=== PATIENT | female | born 1970 | race Caucasian/White ===

== ENCOUNTER 2022-11-24 09:17 | Emergency (ER) | payer OTHER, SELFPAY ==
[2022-11-24] VITALS (14 sets, daily range): BP systolic 123–133; BP diastolic 76–95; PULSE 63–74; RESP 16–20; TEMP 36.1–36.6; O2SAT 98–100; BMI 26.6
--- NOTE | 2022-11-24 09:43 | ED_ITS ---
HPI - Allergic Reaction General Date Seen: 11/24/22 Chief complaint: Allergic Reaction Stated complaint: Short of breath Time Seen by Provider: 11/24/22 09:29 History of Present Illness HPI narrative: This is a pleasant 51-year-old female accompanied to the ER today by her family with concerns for an allergic reaction. She took 3 new supplements this morning. Shortly after taking the supplements she developed allergic reaction symptoms. She broke out and itchy burning hives, she also had some tightness in her chest and in her throat. She came immediately here to the ER. Now that she is here she says all of her breathing trouble and tightness in her throat have resolved. She still has the residual hives. They are stable and not really worsening. No swelling in her face, lips, tongue. Voice is normal. No nausea or vomiting. No abdominal pain. No dizziness or lightheadedness. She has no history of other allergic reactions. No history of asthma. No history of cardiovascular disease or stents. Related Data Home Medications Medication Instructions Recorded Confirmed adrenal support plus 11/24/22 cyanocobalamin (vitamin B-12) 1,000 mcg subcut Q4W 11/24/22 11/24/22 1,000 mcg/mL injection solution dopa factors 11/24/22 vit d3/k2 11/24/22 Previous Rx's Medication Instructions Recorded clobetasol 0.05 % topical ointment 1 applic topical .COMPLEX #15 grams 05/11/22 Allergies Allergy/AdvReac Type Severity Reaction Status Date / Time No Known Drug Allergies Allergy Verified 11/24/22 09:27 [facility] Social History Smoking Status: Never smoker Do you use any of these nicotine containing products: None Second hand tobacco smoke exposure: No How often do you have a drink containing alcohol: never AUDIT-C Alcohol total score: 0 Non-prescribed substance use: marijuana (any form) service: No Exam Narrative: Exam Narrative: Constitutional: Appears well-developed and well-nourished. Alert. Conversant. Non toxic. HENT: Head: Atraumatic. Nose: Nose normal. Mouth/Throat: Oral mucosa is clear and moist. no trismus. Pharynx normal. Tonsils symmetric. No tonsillar enlargement, erythema, or exudate. Phonation normal. Airway widely patent. No trismus. No tongue swelling, lip swelling. No evidence for swelling in her posterior oropharynx. Eyes: Conjunctivae normal. EOM normal. Pupils equal, round, and reactive to light. No scleral icterus. Neck: Normal range of motion. Neck supple. No tracheal deviation present. Cardiovascular: Normal rate, regular rhythm. No gallop. No friction rub. No murmur heard. Symmetric radial artery pulses Pulmonary/Chest: Effort normal. No stridor. No respiratory distress. No wheezes. No rales. No rhonchi . No tenderness. Abdominal: Soft. Bowel sounds normal. No distension. No mass. No tenderness. No rebound. No guarding. Musculoskeletal: RUE: Normal range of motion. No tenderness. No deformity LUE: Normal range of motion. No tenderness. No deformity RLE: Normal range of motion. No edema. No tenderness. No deformity LLE: Normal range of motion. No edema. No tenderness. No deformity Neurological: Alert and oriented to person, place, and time. Normal strength. CN II-VII intact. No sensory deficit. GCS eye subscore is 4. GCS verbal subscore is 5. GCS motor subscore is 6. Normal coordination Skin: Hives present on the cheeks, neck, upper extremities, upper chest, back. Skin is otherwise pink, warm and dry. No rash noted. No pallor. Normal capillary refill. Psychiatric: Normal mood. Normal affect. Const: Vital Signs, click to edit/add: Vital Signs - 24 hr 11/24/22 09:28 11/24/22 09:34 11/24/22 09:35 Temperature 97.0 F L Pulse Rate 70 74 Pulse Rate [Pulse Oximeter] 68 Respiratory Rate 16 16 Blood Pressure 133/93 H Blood Pressure [Ri ght Upper Arm] 130/95 H Pulse Oximetry 100 99 [facility] 11/24/22 09:36 11/24/22 09:45 11/24/22 10:00 Temperature Pulse Rate 74 71 72 Pulse Rate [Pulse Oximeter] Respiratory Rate Blood Pressure Blood Pressure [Ri ght Upper Arm] Pulse Oximetry 98 98 99 Oxygen Delivery Me thod 11/24/22 10:05 11/24/22 10:06 11/24/22 10:15 Temperature 97.4 F L Pulse Rate 73 71 64 Pulse Rate [Pulse Oximeter] Respiratory Rate 16 16 Blood Pressure 123/76 Blood Pressure [Ri ght Upper Arm] Pulse Oximetry 98 100 99 Oxygen Delivery Me thod 11/24/22 10:30 11/24/22 10:34 11/24/22 10:45 Temperature Pulse Rate 67 66 66 Pulse Rate [Pulse Oximeter] Respiratory Rate Blood Pressure Blood Pressure [Ri ght Upper Arm] Pulse Oximetry 100 99 100 Oxygen Delivery Me thod 11/24/22 10:51 11/24/22 11:21 Temperature 97.8 F Pulse Rate Pulse Rate [Pulse Oximeter] 64 63 Respiratory Rate 20 Blood Pressure Blood Pressure [Ri ght Upper Arm] 123/76 128/83 Pulse Oximetry 100 Oxygen Delivery Me thod Room Air Room Air Course Course ED Course: He patient politely declines my initial ordered medications. Will observe. Reevaluation(s) Reevaluation #1: Has done well. Hives have resolved without treatment. at her bedside. They were comfortable discharging to home. Vital Signs Vital signs: Initial Vital Signs Temperature 97.0 F L 11/24/22 09:28 Temperature Source Temporal Artery Scan 11/24/22 09:28 Pulse Rate 68 11/24/22 09:28 Pulse Rhythm Regular 11/24/22 09:28 Pulse Strength 3+ Normal 11/24/22 09:28 Respiratory Rate 16 11/24/22 09:28 Blood Pressure 130/95 H 11/24/22 09:28 Blood Pressure Mean 106 H 11/24/22 09:28 Blood Pressure Position Sitting 11/24/22 09:28 Pulse Oximetry 100 11/24/22 09:28 Oxygen Delivery Method Room Air 11/24/22 09:28 Vital Signs Temperature 97.0 F L 11/24/22 09:28 Pulse Rate 68 11/24/22 09:28 Respiratory Rate 16 11/24/22 09:28 Blood Pressure 130/95 H 11/24/22 09:28 Pulse Oximetry 100 11/24/22 09:28 Oxygen Delivery Method Room Air 11/24/22 09:28 Temperature 97.8 F 11/24/22 11:21 Pulse Rate 63 11/24/22 11:21 Respiratory Rate 20 11/24/22 11:21 Blood Pressure 128/83 11/24/22 11:21 Pulse Oximetry 100 11/24/22 11:21 Oxygen Delivery Method Room Air 11/24/22 11:21 MDM - Allergic Reaction MDM Narrative Medical decision making narrative: This patient presents for evaluation of hives. Signs and symptoms are consistent with allergic reaction. No airway involvement, bronchospasm, GI symptoms, hypotension, or other sign of anaphylaxis. I initially ordered female with antihistamines and corticosteroids but patient declined. We observed the patient here in the ER.. Symptoms improved after observation. Return of anaphylactic symptoms were discussed with patient and they were instructed to inject epi-pen and call 911 should these symptoms occur. Given the rapidity of resolution, lack of serious systemic symptoms, lack of respiratory difficulty and no oral or pharyngeal swelling, would not admit at this time for anaphylaxis. There is no signs of anaphylactic shock. Discharge Plan Discharge Clinical Impression: Allergic reaction Patient Disposition: Home, Self-Care Condition: Stable Instructions: Allergy Testing (ED) Additional Instructions: As we discussed, please come back to the ER right away if you have any concerns especially trouble breathing, chest pain, swelling in your tongue, mouth, or throat, hives, or if you have any problems. Prescriptions: No Action cyanocobalamin (vitamin B-12) 1,000 mcg/mL solution 1,000 mcg subcut Q4W vit d3/k2 adrenal support plus dopa factors clobetasol 0.05 % ointment 1 applic topical .COMPLEX Qty: 15 2RF Rx Instructions: 1 applic topically 3 times a week; Pt should follow up at annual visit in August 2022. Follow Up/Referrals: Kamla Perry PA-C [Primary Care Provider] - Stand Alone Forms: Design Clinicalsth Info Instructions
[2022-11-24] MEDS: predniSONE 20 MG TABLET 60 MG PO (09:52)
[2022-11-24] MEDS: diphenhydrAMINE 25 MG CAPSULE PO (09:53)
--- NOTE | 2022-11-24 09:55 | ED.NURSE ---
Initially, patient refused to take Benadryl and prednisone. Stated she felt her symptoms were improving and didn't see the need for the medications. MD was notified of this and stated he recommended pt to have them but if she refuses then we can just monitor her respiratory status for an hour. Patient was notified and decided she should take the medications. Swallowed them with water without difficultly. Offered food and juice with pills but pt declined.
== END 2022-11-24 11:22 | disposition home or self-care (01) ==
PROVIDERS: Emergency Provider Emergency Medicine; PCP Physician Assistant Medical
DX: L50.9 Urticaria, unspecified (principal); T50.905A Adverse effect of unspecified drugs, medicaments and biological substances, initial encounter
CPT/HCPCS: 99283; A9270; J7512

== ENCOUNTER 2024-09-24 20:21 | Emergency (ER) | payer OTHER, SELFPAY ==
--- OUTSIDE RECORDS SUMMARY | 2024-09-24 20:22 | XMS_ITS | Clinical Summary ---
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 Medications acetaminophen (TYLENOL) 325 mg tablet Take 650 mg by mouth every 4 hours if needed for Pain. Max acetaminophen dose: 4000mg in 24 hrs. Active Syringe with Needle, Disp, (B-D 3cc Luer-Courtney Syr 25Gx5/8) 3 mL 25 x 5/8Indication s:Vitamin B12 deficiency USE TO INJECT B12 INJECTIONS EVERY 4 WEEKS. 4 Each 3 4 Active cyanocobalamin (VITAMIN B12) 1,000 mcg/mL injectionIndic ations:Vitamin B12 deficiency INJECT 1ML (DEEP) SUBCUTANEOUSLY EVERY 4 WEEKS. 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 Vitamin B12 deficiency 01/25/2011 Urinary retention 11/19/2010 Bariatric surgery status: Lap RNY gastric bypass 11/17/2010 Vitamin D deficiency 07/14/2010 Major depressive disorder, 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 Resolved Problems Problem Noted Date Diagnosed Date Resolved Date Morbid obesity 08/19/2010 02/17/2013 Body mass index 40.0-44.9, adult 08/19/2010 02/17/2013 Encounters Date Type Department Care Team Description 08/28/2024 7:50 AM CDT Office Visit [facility] [address] [place] [address] Kamla Perry PA Hip Pain/problem (R hip pain X 3 months - no known injury/) 08/28/2024 Travel 08/25/2024 Travel 08/17/2024 7:25 AM CDT Office Visit [facility] [address] [facility] [place] [address] Munir Linares MD URI (Sore Throat, face hurts, Post nasal drainage./DOO 08/08/2024) 08/17/2024 Orders Only [facility] [address] [place] [address] Munir Linares MD Lab (ORDER REPLACED) 08/17/2024 Travel 07/11/2024 Orders Only [facility] [address] [place] [address] Kamla Perry PA 1 scan: (1-Ord) [facility] 07/10/2024 10:40 AM CDT - 07/10/2024 11:59 PM CDT Hospital Encounter Carlos Rodriguez MD 07/10/2024 Orders Only [facility] [address] [facility] [address] [place] [id number] Carlos Rodriguez MD <No scans attached> 07/10/2024 Surgery [facility] [address] [place] [address] Carlos Rodriguez MD colonoscopy, screning 07/04/2024 Telephone [facility] [address] [place] [address] Carlos Rodriguez MD Appointment Reminder (Colonoscopy on 07/10/2024 at [facility]) from Last 3 Months Immunizations Immunization Administration Dates Next Due COVID-19 vaccine (Speed Dating by [employer] Lace 30mcg/0.3mL) P F, MDV 09/05/2020,08/15/2020 Td (Age >=7 Years) 02/22/2018 Tdap 02/01/2007 Family History Medical History Relation Name Comments Hyperlipidemia Father Hypertension Father Lung cancer Father Thyroid Disease Maternal Aunt 1 Thyroid Disease Maternal Aunt 2 Thyroid Disease Maternal Aunt 3 Thyroid Disease Maternal Aunt 4 Thyroid Disease Maternal Aunt 5 Blood Disease Maternal Grandmother clot i n her neck Stroke Maternal Grandmother Arthritis Mother RA Cancer Mother lung Thyroid Disease Mother Hypertension Sister Psychiatric illness Sister Thyroid Disease Sister Anesthesia Problem No Family History Cancer-breast No Family History Cancer-ovarian No Family History Relation Name Status Comments Brother 1 Alive Brother 2 Alive Brother 3 Alive Brother 4 Alive Daughter Alive Father Maternal Aunt 1 Maternal Aunt 2 Maternal Aunt 3 Maternal Aunt 4 Maternal Aunt 5 Maternal Grandfather Maternal Grandmother Mother Alive Paternal Grandfather Paternal Grandmother Sister Alive Son Alive Social History Tobacco Use Types Packs/Day Years Used Date Smoking Tobacco: Never Smokeless Tobacco: Never Tobacco Cessation:Counseling Given: Yes Alcohol Use Standard Drinks/Week Comments No 0 (1 standard drink = 0.6 oz pur e alcohol) PHQ-2 Answer Date Recorded PHQ-2 TOTAL SCORE 3 06/09/2022 Social Connections Answer Date Recorded Do you often feel lonely or isolated from those around you? 0 08/17/2024 Financial Resource Strain Answer Date R ecorded Difficulty of Paying Living Expenses 3 08/17/2024 Difficulty of Paying Living Expenses Not on file 08/17/2024 Food Insecurity Answer Date Recorded Do you worry your food will run out before you are able to buy more? 1 08/17/2024 Transportation Needs Answer Date Record ed Does lack of transportation keep you from medica l appointments? 1 08/17/2024 Does lack of transportation keep you from work, meetings or getting things that you need? 1 08/17/2024 Housing Stability Answer Date Recorded What is your housing situation today? 1 08/17/2024 Utilities Answer Date Recorded Do you have trouble paying f or utilities (for example, heat, electricity, water, phone)? 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 on file Not on file Not on file Obstetrics History Para Term AB IAB SAB Ectopic Multiple Livin g Live Births 2 2 2 Date Outcome GA Total Labor Labor/2nd/3rd Weight Sex Type Anes PTL Erika A1 A5 Name Clin Para Para Last Filed Vital Signs Vital Sign Reading Time Taken Comments Blood Pressure 130/87 08/28/2024 7:57 AM CDT Pulse 67 08/28/2024 7:57 AM CDT Temperature 36.6 C (97.9 F) 08/17/2024 7:20 AM CDT Respiratory Rate 18 07/03/2020 11:06 AM CDT Oxygen Saturation 100% 08/28/2024 7:57 AM CDT Inhaled Oxygen Concentration - - Weight 77.6 kg (171 lb) 05/15/2024 9:11 AM CDT Height 172.5 cm (5' 7.91) 06/21/2020 11:10 AM C DT Body Mass Index 26.07 06/21/2020 11:10 AM CDT Plan of Treatment Health Maintenance Due Date Last Done Comments HIV for age 15-65 1985 Hepatitis C screening for ag e 18-79 1988 Hepatitis B series for 19+ ( 1 of 3 - 19+ 3-dose series) 1989 Pneumococcal series for age 50+ (1 of 1 - PCV) 2020 Zoster (shingles) series for age 50+ (1 of 2) 2020 BMI (ht and wt on same day) for age 18+ 06/21/2021 06/21/2020, 10/11/2019, 02/22/2018, Additional history exists Depression screening for age 12+ 06/10/2023 06/09/2022, 04/16/2020, 09/22/2017, Additional history exists COVID-19 vaccine series ( season) 2023 09/05/2020, 08/15/2020 Influenza Vaccine (#1) 2024 Mammogram for age 45-75 11/28/2024 11/29/19 24, 03/23/2022, 01/22/2021, Additional history exists Lipids for age 45-75 06/21/2025 06/21/2020, 05/01/2009, 05/01/2009, Additional history exists Tetanus booster 02/23/2028 02/22/2018, 02/01/2007 Colonoscopy through age 75 07/10/2034 07/10/2024 Medical Devices Implanted Type [employer] Professional Device Identifier Shelf Expiration Date Model / Serial / Lot [id number] Implanted:Qty: 1 on 11/17/2010 at [facility] Explanted:at [facility] (Quantity not on file) Stomach SenSage ATLITA 06/07/2011 [id number] / [id number] / Description:ALLODERM 2X12 Procedures Procedure Name Priority Date/Time Associated Diagnosis Comments THROAT RAPID STREP ONLY CLINIC Routine 08/17/2024 12:24 PM CDT Sore throat STREP A PCR Routine 08/17/2024 7:30 AM CDT Sore throat COLONOSCOPY SCREENING Routine 07/10/2024 12:00 AM CDT Screening for colon cancer XR MAMMO BILAT SCREENING Routine 11/29/2023 2:55 PM CDT Visit for screening mammogram LIPID PANEL W REFLEX MEASURED LDL Routine 06/21/2020 11:44 AM CDT Lipid screening SURGICAL PROCEDURE (TYPE PROCEDURE DESCRIPTION BELOW) Encounter for screening colonoscopy from Last 3 Months or Most Recently Relevant to Health Maintenance Results * THROAT RAPID STREP ONLY CLINIC (08/17/2024 12:24 PM CDT) POC, GROUP A STREP NOT DETECTED NOT DETECTED [facility] Comment: The [place] [employer] recommends that a throat culture be performed if a rapid group A streptococcus assay yields a negative result. [facility] recommends Streptococcus, Group A culture. Throat SPECIMEN FROM THROAT / Unknown 08/17/2024 12:24 PM CDT 08/17/2024 12:26 PM CDT Munir Linares MD MICROBIOLOGY Final Res ult Performing Organization Address City/[facility]/ZIP Co de Phone Number [facility] [address] [place] [address], [facility] [address] [place] [address] * STREP A PCR (08/17/2024 7:30 AM CDT) Pathologist [facility] GROUP A STREP Negative 08/17/2024 8:05 PM CDT [facility] Throat SPECIMEN FROM THROAT / Unknown Non-Blood / Unknown 08/17/2024 7:30 AM CDT 08/17/2024 7:45 AM CDT Munir Linares MD MICROBIOLOGY Final Res ult [facility] [address] [place] [address], * COLONOSCOPY SCREENING (07/10/2024 12:00 AM CDT) Kamla SANTOS GI PROCEDURE ORD Final Result * XR MAMMO BILAT SCREENING (11/29/2023 2:55 PM CDT) Anatomical Region Laterality Modality BREASTS, Breast Left, Breast Right Bilateral Mammography Impressions 12/01/2023 3:44 PM CDT There is no radiographic evidence for malignancy. Recommend annual mammograms. MAMMOGRAM ASSESSMENT: ACR 1 Negative PATIENTS: You will also receive a letter with your examination results in an easy to read format. If you have questions about your results, please contact your referring provider. Narrative 12/01/2023 3:44 PM CDT For Patients: As a result of the Century Cures Act, medical imaging exams and procedure reports are released immediately into your electronic medical record. You may view this report before your referring provider. If you have questions, please contact your health care provider. XR MAMMO BILAT SCREENING [[id number]] CLINICAL HISTORY: This is an asymptomatic 53 y.o. patient. INDICATION FOR EXAM: Mammogram Screening. TECHNIQUE: CC & MLO views were obtained. This study was evaluated with the assistance of Computer-Aided Detection. COMPARISON FILM: Yes [facility]22 [facility] FINDINGS: There are scattered areas of fibroglandular density. There are no dominant masses, suspicious micro calcifications or areas of architectural distortion. us Kamla SANTOS MAMMO Final R esult * LIPID PANEL W REFLEX MEASURED LDL (06/21/2020 11:44 AM CDT) CHOLESTEROL,TOTAL 174 100 - 199 mg/dL 06/21/2020 6:51 PM CDT [facility] TRIGLYCERIDES 50 <150 mg/dL 06/21/2020 6:51 PM CDT [facility] HDL CHOLESTEROL 72 >40 mg/dL 6:51 PM CDT [facility] NON-HDL CHOLESTEROL 102 <145 mg/dl 06/21/2020 6:51 PM CDT [facility] CHOL/HDL RATIO 2.42 <4.50 06/21/2020 6:51 PM CDT [facility] LDL CHOLESTEROL 92 <=130 mg/dL 06/21/2020 6:51 PM CDT [facility] PROVIDER ORDERED STATUS RANDOM 06/21/2020 6:51 PM CDT [facility] Blood BLOOD SPECIMEN / Unknown Venipuncture / Unknown 06/21/2020 11:44 AM CDT 06/21/2020 11:44 AM CDT us Kamla SANTOS CHEMISTRY Final R esult [facility] [address] [place] [address], [place] from Last 3 Months or Most Recently Relevant to Health Maintenance Insurance [facility] Advance Directives * Full Code (Latest Code Status on File) Date Activated Date Inactivated Comments 05/12/2015 11:46 AM 05/13/2015 1:40 PM * Full Code Date Activated Date Inactivated Comments 09/17/2014 4:26 AM 09/19/2014 5:40 PM * Full Code Date Activated Date Inactivated Comments 09/17/2014 4:15 AM 09/17/2014 4:26 AM * Full Code Date Activated Date Inactivated Comments 11/14/2010 1:18 PM 11/18/2010 5:21 PM Care Teams Truck Driving Instructor Relationship Specialty Start Date End Date Kamla Perry PA [address] [place] [address] PCP - General Family Practice 02/09/14
--- OUTSIDE RECORDS SUMMARY | 2024-09-24 20:23 | XMS_ITS | Data Portability ---
[facility] Address [address] [address] Care Team Providers Care Property Custodian Name Role Phone JORDONAmrit JASMINE Primary Care Provider Unavailable Referring Provider [phone] Assessment Encounter Date Assessment Date Assessment LastModified by Organization Details LastModified Time 05/10/2019 05/10/2019 Today I spent a considerable amount of time discussing the patients past medical and personal history, as well as performing a physical examination all of which is documented in it's entirety in the electronic health record. I reviewed the pathophysiology of the disorder, potential contributing and risk factors as well as treatment options to address their complaints. Today panoramic imaging was obtained. In this radiograph the mandibular condyles were partially visualized and appear slighlty flattened and irregular . There was no other suggestion of osseous or odontogenic abnormalities. I've not recommended advanced imaging at this time. From a treatment perspective I've recommended rehabilitative treatment approach. Treatment begins with home self management designed to rest the muscles of mastication and reduce inflammation in the temporomandibular joints. This includes heat and ice compresses, eating a soft food or pain-free diet, bilateral chewing identifying and decreasing daytime muscle tension and modification of their sleep position. Beyond self management I do believe that they would benefit from a mandibular intraoral appliance. In addition I've recommended rehabilitation with physical therapy. The goal of treatment is to restore function and reduce pain. I do believe that by following these treatment recommendations there is a good prognosis for reduction of symptoms. Today greater than 50% of the 60 minute visit was spent counseling and coordinating care. This may have included a review of the diagnosis, contributing factors, diagnostic imaging, home self-management strategies and the limitations and expectations. Cost of care and insurance coverage was reviewed and discussed with the patient. Not available 05/11/2019 16:05:58 08/11/2019 08/11/2019 Patient was seen today for follow-up and insertion of a mandibular stabilization intraoral appliance. Diagnosis and contributing factors were reviewed. Questions were answered. Self-management and home exercise techniques were reviewed. Today the intraoral appliance was fit to patient comfort. Specifically, adjustments were made to balance appliance occlusion. Instructions on proper use and care were discussed/reviewed both written and verbally. I suggested that (s)he uses the appliance as a retraining tool to aid in relaxing their jaw muscles - put it in 20-30 minutes before bed time, keeping their jaw in a relaxed balanced position, simultaneously applying a heat compress on the jaw. Potential side effects were reviewed. The patient was advised to discontinue oral appliance use should they experience untoward side effects or be unable to return for follow-up care. The patient was advised to return in 3-4 weeks to reassess their progress and continue their treatment plan as previously outlined. In addition to oral appliance insertion today we review home self-care strategies as previously discussed. We discussed additional treatment options including rehabilitative treatment with physical therapy. Evi will see how she responds to splint therapy before physical therapy. Today greater than 50% of the 15 minute visit was spent counseling and coordinating care. This may have included a review of the diagnosis, contributing factors, home self-management strategies and the limitations and expectations. Not available 08/11/2019 11:46:49 09/28/2019 09/28/2019 Today I reviewed the diagnosis, contributing factors and treatment options. I reviewed and reinforced continued use of self care and home exercises. I've encouraged daily home care use which may consist of heat and ice compresses, oral habit reduction and relaxation techniques. The intraoral appliance was adjusted to patient comfort and balanced. I recommended she see Paul, physical therapist, to address her chronic right masseter myofascial pain. I've suggested that the patient return for follow-up care in 3 months. Today greater than 50% of the 15 minute visit was spent counseling and coordinating care. This may have included a review of the diagnosis, contributing factors, home self-management strategies and the limitations and expectations. 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 Patient is moderate complexity with 1 personal factors / comorbidities affecting the plan of care, with evolving clinical presentation. Examination determines affected structures, participation restrictions and/or functional limitations. The patient will benefit from PT to decrease pain and increase function. Contributing factors include muscle guarding, weakness in the right and and leg, unilateral limitation in rotation. Her jaw dysfunction seems to be the end of the chain, as the opening increases by working an area far removed from the jaw. Treatment will include exercises to release muscle tension and increase strength and stability. Habit monitoring and repeated reminding techniques will be utilized to eliminate habitual clenching. 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 Lower quarter and upper quarter dysfunction to be addressed. csather Not available 10/05/2019 13:58:05 Plan of Treatment Reminders Order Date Submit Date Provider Last Modified By Organization Details Last Modified Time Details Appointments None recorded. Lab None recorded. Referral physical therapist referral 2019 [address] [facility], [facility] [address], [place], [address], 0 16:07:21 Procedures None recorded. Surgeries None recorded. Imaging None recorded. Medication Orders None recorded. Patient TargetsNo targets recorded. Patient Instructions Encounter Date Encounter Id Patient Instructions Last Modified By Organization Details Last Modified Time 05/10/2019 [id number] oral appliance preparation* Not available 05/11/2019 16:07:21 Self Care for TMD Not availabl e 05/11/2019 16:07:21 10/05/2019 [id number] Plan: Medicare requires a primary grade teacher or BUSINESS SUPPORT PROFESSIONAL to authorize our plan of care. If you agree with the plan as outlined above, please sign, date and fax back to [phone]. Thank you. Primary MD signature: Date: [email or web address] Not available 10/05/2019 12:09:49 Reason for Referral Physical Therapist Referral for Myofascial pain Referring Physician: Deedee Calabrese, Pain Management, Encounter Date: 05/10/2019 Results Created Date Observation Date Name Description Value Unit Range Abnormal Flag Note LastModifiedBy Organization Detail LastModifiedTime 05/11/1905/11/2019 oral appli ance prepa ratio n* Type of appliance mandib ular stabil izatio n applia nce Not Available [place] [address] [facility] [address], [place], [address], 05/11/2019 16:03:27 05/10/19 XR, ortho panto gram No observ ation record ed. [email or web address] Not Available 2019 14:27:47 Result Notes None recorded. Problems Name Problem SNOMED Code Status Onset Date Resolution Date Notes Provider Name and Address Organization Details Recorded Time Myofascial pain 002236595 Active 2019 masticato ry- right masseter Deedee barrera [facility] 0 14:02:04 Neck pain 38564304 Active 2019 VIKASH Monzon [facility] 0 16:01:26 Problem Notes None recorded. Procedures Surgical History Date Name Laterality Status Provider Name and Address Organization Details Recorded Time 10/05/19 11802 - PT Eval Moderate Complexity completed Paul Arteaga [facility] 10/05/2019 12:09:50 10/05/19 45335: Therapeutic Exercise completed Paul SUH [facility] 10/05/2019 12:09:50 10/05/19 20 28882: Manual Therapy completed Paul Arteaga [facility] 10/05/2019 13:52:53 08/11/19 20 Oral appliance completed Jeffery Rendonppard [facility] 08/11/2019 11:14:01 05/10/19 20 Orthopantogram completed Deedee Calabrese [facility] 05/10/2019 14:54:01 02/06/20 15 Urgent Care Physician Assistant Surgery completed Jeffery Rendonppard [facility] 05/10/2019 14:09:30 11/18/19 10 Gastric Bypass completed Jeffery Gary [facility] 05/10/2019 14:09:30 10/01/18 99 Caesarean Section completed Jeffery Gary [facility] 05/10/2019 14:09:30 Imaging Results None recorded. Procedure Notes None recorded. Medical Equipment None Reported. Allergies Allergen ID Allergen Name Allergen Category Reaction Reaction Severity Criticality Documentation Date Start Date Code Code System Note Provider Name and Address Organization Details Recorded Time 65693 Non-stero idal anti-infl ammatory agent (product) medicatio n Not available Not available Not available 05/10/2019 40837 005 SNOMED Jeffery Garynelly barrera [facility] 0 14:10:44 Medications Name Sig Start Date Stop Date Status Note LastModified by Organization Details LastModified Time cyclobenzaprine 10 mg tablet 05/04 completed Not Available Not Available Not Available BD Luer-Courtney Syringe 3 mL 25 x 5/8 active Not Available Not Available Not Available cyanocobalamin (vit B-12) 1,000 mcg/mL injection solution active Not Available Not Available Not Available Vitals Date Recorded Body height Body mass index (BMI) Body weight Heart rate Systolic And Diastolic Provider Name and Address Organization Details Last Updated DateTime 05/10/2019 172.72 cm 25.8 kg/m2 32965.7 g 60 /min 150/98 mm[Hg] Jeffery Gary [facility] 05/10/2019 14:10:15 Date Recorded Body height Body temperature Heart rate Systolic And Diastolic Provider Name and Address Organization Details Last Updated DateTime 08/11/2019 172.72 cm 97.7 [degF] 63 /min 129/85 mm[Hg] Jeffery Gary [facility] 08/11/2019 11:09:43 Date Recorded Body height Body mass index (BMI) Body weight Body temperature Heart rate Systolic And Diastolic Provider Name and Address Organization Details Last Updated DateTime 0 172.72 cm 25.8 kg/m2 76004.7 g 97.2 [degF] 61 /min 129/83 mm[Hg] Lee Solanoken [facility] 0 13:37:35 Social History Question Answer Notes LastModified by Organizat ion Details LastModified Time Tobacco Smoking Status Never Smoker Jeffery Rendonppard holly [facility] 05/10/2019 14:09:25 Auto Related Injury? No Information not available 05/10/2019 What Is Your Level Of Caffeine Consumption? Occasional Information not available 05/10/2019 Currently No Information not available 05/10/2019 What Type Of Diet Are You Following? REGULAR Information not available 05/10/2019 Do You Reside In Or Have You Traveled To An Area Where Ebola Virus Transmission Is Active? No Information not available 05/10/2019 Education 2 Year College Informatio n not available 05/10/2019 Marital Status Informatio n not available 05/10/2019 What Number Best Describes Your Pain On Average In The Past Week? (0=no Pain, 10=pain As Bad As You Can Imagine) 2 Information not available 05/10/2019 What Number Best Describes How, During The Past Week, Pain Has Interfered With Your Enjoyment Of Life? (0=does Not Interfere, 10= Completely Interferes) 0 Information not available 05/10/2019 What Number Best Describes How, During The Past Week, Pain Has Interfered With Your General Activity? (0=does Not Interfere, 10=completely Interferes) 0 Information not available 05/10/2019 How Many Children Do You Have? 2 Information not available 05/10/2019 General Stress Level Low [email or web address] Information not available 09/28/2019 Work Related Injury? No Information not available 05/10/2019 Sex: Unknown Functional Status Question Answer Note LastModified by Organizat ion Details LastModified Time Do you use any illicit or recreational drugs? No Information not available 05/10/2019 What is your level of alcohol consumption? None Information not available 05/10/2019 Are you currently employed? 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 Heavy Information not available 05/10/2019 Mental Status None recorded. Family History Relationship Description Onset Age of this Age Resolved Age Notes LastModified by Organization Details LastModified Time Maternal Grandmother Heart disease 54 Not available 05/09 14:09:04 Mother Rheumatoid arthritis 60 Not available 05/09 14:09:04 Medical History Condition Response Coronary Artery Disease N Gout N Other N MRSA N Head Trauma/Injury N Lung Disease N Glaucoma N Depression N COPD N Pneumonia N Pacemaker N Obstructive Sleep Apnea N Anxiety Disorder N Muscle, Joint, or Bone Problems N Autoimmune disease N Vision or Eye Problems N Arthritis N Acid Reflux (GERD) N Cancer N Stroke N Back Injury N High Cholesterol N Liver Disease N Organ Transplant N Rheumatoid Arthritis N Headaches N Fibromyalgia N Kidney Disease N Allergies/Hayfever N Post traumatic stress disorder (PTSD) N Parkinson's Disease N Migraines N Brain Tumors N Anemia N Multiple Sclerosis N Heart Attack ([place]) N Stomach Ulcers N Diabetes N Bleeding Disorder N Seizures/Epilepsy N Tuberculosis N AIDS/HIV N Dementia N Asthma N Substance Abuse N Vertigo N Sleep Disorder N Hepatitis N Neuropathy N Heart Disease N Pulmonary Embolism Y Hypertension N Osteoporosis N Gynecological HistoryNo gynecological history recorded. 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 Neck pain 53475826 M54.2 [id number] DEEDEE CALABRESE DDS [place] [address] [place] [address] 09/28/2019 13:31:45 09/28/2019 14:04:11 Neck pain 93846975 M54.2 Myofascial pain 57261118 9 M79.11 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- right masseter [id number] PAUL ARTEAGA, PT [place] [address] [place] [address] 10/05/2019 11:59:43 10/05/2019 13:13:46 Myofascial pain 181669740 M79.11 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- right masseter Neck pain 13402746 M54.2 Health Concerns Section Related Observation LastModified by Organization Detai ls LastModified Time None Recorded Concern Status LastModified by Organization Details LastModified Time None Recorded Advance Directives Directive None Recorded Payers Insurance Date Sequence Insurance Name Policy Number Policy Oh Covered Member ID Oh Member ID Guarantor Name 10/29/2019 1 [facility] Doug Rodríguez [id number] Doug Rodríguez Notes Date Note Type Note Provider Name and Address Organization Details Recorded Time 0 text/html Jaw painReported bypatient.Onset:started 1.5 year(s) ago Location:right; masseter Quality:aching; sore Severity:pain level 0/10 Duration and frequencyintermittent ; only when she opens Context:clenching; dental work Aggravating/contribution factors:clenching the teeth; yawning; wide mouth opening Associated Symptoms:no jaw clicking; no jaw popping Prior Treatment:nightguard; water filled appliance from [facility] Prior opiniondentist Patient presents today for evaluation of a possible temporomandibular disorder. These symptoms are chronic and began with no clear triggering events. Previous consultation include evaluation with her dentist. Symptoms are right sided only and aggravated by jaw use and function. The patient is aware of teeth clenching and grinding. Evi reports that 1.5 years ago she had some dental work done, and since then, she has had pain in her right jaw. She had no prior history with TMD up until that point. Her pain is present only when she opens her mouth. Her dentist has tried balancing her occlusion, but the pain did not decrease. She had a manager night fabricated by her dentist as well, but it did not seem to affect her pain, either. The appliance had water-filled pockets on the posterior occlusal. Evi believes that she may be clenching her teeth. VIKASH [facility] 05/11/2019 16:07:25 0 text/html Jaw painReported bypatient.Onset:started 1.5 year(s) ago Location:right; masseter Quality:aching; sore Severity:pain level 0/10 Duration and frequencyintermittent ; only when she opens Context:clenching; dental work Aggravating/contribution factors:clenching the teeth; yawning; wide mouth opening Associated Symptoms:no jaw clicking; no jaw popping Prior Treatment:nightguard; water filled appliance from [facility] Prior opiniondentist Patient presents today for insertion of a mandibular stabilization oral appliance. They note no changes in symptoms which along with prior data was reviewed, updated and documented in the patient history of present illness. (S)he describes compliance with home self care as previously recommended. Evi reports that her symptoms have not changed. We were unable to begin treatment after her initial appointment due to the Covid 10 quarantine. VIKASH Monzon [facility] 08/11/2019 11:47:40 0 text/html Jaw painReported bypatient.Onset:started 1.5 year(s) ago Location:right; masseter Quality:aching; sore Severity:pain level 0/10 Duration and frequencyintermittent ; only when she opens Context:clenching; dental work Aggravating/contribution factors:clenching the teeth; yawning; wide mouth opening Associated Symptoms:no jaw clicking; no jaw popping Prior Treatment:nightguard; water filled appliance from [facility] Prior opiniondentist Patient presents today for follow-up. They report jaw symptoms which are unchanged since the previous visit. Symptoms and pertinent information along with prior data was reviewed, updated and documented in the patient history of present illness. Patient rates the pain intensity as 4 on a scale of 0 to 10. Patient is engaged in active treatment at this time.Evi reports that she has been wearing her splint nightly but that she wakes up with pain in her right jaw which lasts through early afternoon. She has not been using heat or doing any exercises. Deedee barrera [facility] 09/28/2019 14:06:49 0 text/html Jaw painReported bypatient.Onset:started 1.5 year(s) ago Location:right; masseter Quality:aching; sore Severity:pain level 0/10 Duration and frequencyintermittent ; only when she opens Context:clenching; dental work Aggravating/contribution factors:clenching the teeth; yawning; wide mouth opening Associated Symptoms:no jaw clicking; no jaw popping Prior Treatment:nightguard; water filled appliance from [facility] Prior opiniondentist Patient presents today for follow-up. They report jaw symptoms which are unchanged since the previous visit. Symptoms and pertinent information along with prior data was reviewed, updated and documented in the patient history of present illness. Patient rates the pain intensity as 4 on a scale of 0 to 10. Patient is engaged in active treatment at this time.Evi reports that she has been wearing her splint nightly but that she wakes up with pain in her right jaw which lasts through early afternoon. She has not been using heat or doing any exercises. Personal factors and/or comorbidities affecting the plan of care include . Functional limitations and participation restrictions include . Patient presents today for PT evaluation regarding . Symptoms began with . Contributing factors: *Clenching *Bruxism *Leaning on chin *Phone cradle *Biting objects/fingernails *[place]/chewing lips/cheeks *Tongue thrusting *Jaw thrusting *Unilateral chewing * stress level * anxiety level *Nicotine *Caffeine per day *Sleep position *Work ergonomics Evi reports that she has been wearing her splint nightly but that she wakes up with pain in her right jaw which lasts through early afternoon. She has not been using heat or doing any exercises. Dental appointment with mouth opened caused original problems. Put on a cap. Works at home, no issues.Stress lowDoesn;t clench. No gum chewing. No problem eating. VIKASH [place] [facility] 10/05/2019 13:59:32 OBGyn Episode No OBEpisode recorded.
[2024-09-24 20:25] VITALS: BP 165/95; PULSE 86; RESP 18; TEMP 36.6; O2SAT 97; BMI 26.8
--- NOTE | 2024-09-24 21:05 | CRLHL7_ITS ---
For Patients: As a result of the Century Cures Act, medical imaging exams and procedure reports are released immediately into your electronic medical record. You may view this report before your referring provider. If you have questions, please contact your health care provider. INDICATION: Chest pain. TECHNIQUE: Chest 2 views. COMPARISON: CT chest PE 09/13/2014. FINDINGS: Cardiovascular and mediastinum: Heart size and vasculature are normal in caliber and appearance. Lungs and pleural spaces: Lungs are clear. No sign of infiltrate or mass. No sign of pleural effusion. No pneumothorax. Bones and soft tissues: No significant findings. IMPRESSION: No acute cardiopulmonary abnormality. Dictated by Cortes Monteiro MD @ 09/24/2024 9:22:23 PM (Electronically Signed)
--- NOTE | 2024-09-24 21:08 | ED_ITS ---
HPI - General Adult General Date Seen: 09/24/24 Chief complaint: Insect Bite Stated complaint: stung by bee, chest pressure Time Seen by Provider: 09/24/24 20:36 Source: patient Mode of arrival: ambulatory Limitations: no limitations History of Present Illness HPI narrative: Patient is a 53-year-old female presenting to emergency department for right ear swelling and pain. She states yesterday afternoon she was stung by bee in her right ear. Since then she has been noticing increased swelling to the right ear with some pain and swelling around the ear. Rates the pain as a 7/10 into Tylenol today for pain. Is not aware of any allergies to bee stings. Has not taking any Benadryl yet. Denies any other rashes. Denies fevers, chills, hearing issues. She then noticed some chest pain today that started a few hours ago that was not going away. Describes as a pressure sensation. Does not feel short of breath. Does have a history of a PE. Denies having chest pain like this before. Denies weakness, numbness, abdominal pain, diarrhea, constipation. Has not noticed any leg pain or swelling. No other concerns noted at this time. Related Data Home Medications ?Medication ?Instructions ?Recorded ?Confirmed adrenal support plus 11/24/22 06/29/23 cyanocobalamin (vitamin B-12) 1,000 mcg subcut Q4W 09/24/24 1,000 mcg/mL injection solution dopa factors 11/24/22 06/29/23 vit d3/k2 11/24/22 06/29/23 estradiol 0.01% (0.1 mg/gram) 0.5 vaginal .Twice Weekl y 06/29/23 06/29/23 vaginal cream Previous Rx's ?Medication ?Instructions ?Recorded estradiol 0.01% (0.1 mg/gram) 0.5 g vaginal 2XW #42.5 grams 06/29/23 vaginal cream (Estrace) clobetasol 0.05 % topical ointment 1 applic topical .C OMPLEX #15 grams 11/29/23 Allergies Allergy/AdvReac Type Severity Reaction Status Date / Time NSAIDS (Non-Steroidal AdvReac Unknown Had Verified 09/24/24 20:35 Anti-Inflamma Gastric Bypass Review of Systems Status of ROS: Reports: 10 or more systems reviewed and unremarkable except as noted in History and below [facility] Medical History Cholecystitis without calculus (2015) ?K81.9 - Cholecystitis, unspecified (ICD-10) History of pulmonary embolus (PE) (02/08/14) ?Z86.711 - Personal history of pulmonary embolism (ICD-10) History of DVT (deep vein thrombosis) (09/13/14) ?Z86.718 - Personal history of other venous thrombosis and embolism (ICD-10) Surgical History History of 2 sections ?Z98.891 - History of uterine scar from previous surgery (ICD-10) History of endometrial ablation (04/06/14) ?Z98.890 - Other specified postprocedural states (ICD-10) History of Felicita-en-Y gastric bypass (2010) ?Z98.84 - Bariatric surgery status (ICD-10) History of hysterectomy (09/12/14) ?Z90.710 - Acquired absence of both cervix and uterus (ICD-10) Family History Mother Lung cancer Thyroid disease Rheumatoid arthritis Maternal Grandmother Stroke Bleeding disorder Father High cholesterol High blood pressure Sister High blood pressure Depression Stroke Aunt Stroke Social History Smoking Status: Never smoker Do you use any of these nicotine containing products: None Second hand tobacco smoke exposure: No How often do you have a drink containing alcohol: never AUDIT-C Alcohol total score: 0 Non-prescribed substance use: marijuana (any form) service: No Exam Narrative: Exam Narrative: Const: Well-nourished, Well-developed, in mild distress Eyes: PERRL, no conjunctival injection, and symmetrical lids HENT: Atraumatic external nose. Moist mucous membranes. Notable swelling noted to the right ear with diffuse erythema. Tenderness when pulling on the ear Neck: Symmetric, trachea midline, No thyromegaly. CVS: RRR, No murmurs or gallops. Peripheral pulses 2+ and equal in all extremities RESP: Unlabored respiratory effort. Clear to auscultation bilaterally. GI: Nontender/Nondistended, No rebound or guarding. MSK:Extremities w/o deformity, Normal Active ROM Skin: Warm, Dry. No rashes or lesions. Neuro: Normal Muscle tone, No focal neurological deficits. Psych: Awake, Alert, & Oriented x3. Appropriate mood and affect. Const: Vital Signs, click to edit/add: Vital Signs - 24 hr 09/24/24 20:25 Temperature 97.8 F Pulse Rate [Left P ulse Oximeter] 86 Respiratory Rate 18 Blood Pressure [Ri ght Upper Arm] 165/95 H Pulse Oximetry 97 Oxygen Delivery Me thod Room Air Course Vital Signs Vital signs: Initial Vital Signs Temperature 97.8 F 09/24/24 20:25 Temperature Source Temporal Artery Scan 09/24/24 20:25 Pulse Rate 86 09/24/24 20:25 Respiratory Rate 18 09/24/24 20:25 Blood Pressure 165/95 H 09/24/24 20:25 Blood Pressure Mean 118 H 09/24/24 20:25 Blood Pressure Position Sitting 09/24/24 20:25 Pulse Oximetry 97 09/24/24 20:25 Oxygen Delivery Method Room Air 09/24/24 20:25 Vital Signs Temperature 97.8 F 09/24/24 20:25 Pulse Rate 86 09/24/24 20:25 Respiratory Rate 18 09/24/24 20:25 Blood Pressure 165/95 H 09/24/24 20:25 Pulse Oximetry 97 09/24/24 20:25 Oxygen Delivery Method Room Air 09/24/24 20:25 Temperature 97.8 F 09/24/24 20:25 Pulse Rate 86 09/24/24 20:25 Respiratory Rate 18 09/24/24 20:25 Blood Pressure 165/95 H 09/24/24 20:25 Pulse Oximetry 97 09/24/24 20:25 Oxygen Delivery Method Room Air 09/24/24 20:25 Medications Administered Medications: Discontinued Medications Generic Name Dose Route Start Last Admin Trade Name Freq PRN Reason Stop Dose Admin Ciprofloxacin 500 mg 09/24/24 21:05 09/24/24 21:21 Ciprofloxacin 500 Mg Tablet PO 09/24/24 21:06 500 mg ONCE ONE Administration Diphenhydramine HCl 25 mg 09/24/24 21:05 09/24/24 21:21 Diphenhydramine 50 Mg/Ml Inj IVP 09/24/24 21:06 25 mg ONCE ONE Administration Famotidine 20 mg 09/24/24 21:05 09/24/24 21:22 Famotidine 20 Mg Tablet PO 09/24/24 21:06 20 mg ONCE ONE Administration Prednisone 40 mg 09/24/24 21:05 09/24/24 21:22 Prednisone 20 Mg Tablet PO 09/24/24 21:06 40 mg ONCE ONE Administration Medical Decision Making MDM Narrative Medical decision making narrative: Patient is a 53-year-old female presenting to emergency department for right ear pain and swelling along with chest pain. The right ear could be an infection from the bug bite but also could be allergic reaction. There is some very mild tenderness to her right mastoid region but this seems unlikely to be mastoiditis from this superficial infection. No signs of otitis media. Do not believe CT is necessary. Will treat her for both infection and allergic reaction. While she does have chest pain her vital signs are stable under is not appear to be any other rash in seems unlikely to be anaphylaxis. The differential diagnosis of chest pain is broad and includes common etiologies such as musculoskeletal strain, GERD, pneumonia, etc. More serious etiologies considered include PE, coronary artery disease, pneumothorax, aortic dissection, aortic aneurysm. She has history of PE so a D-dimer will be ordered. Will do chest x-ray to look for signs of pneumonia or pneumothorax. EKG and troponin ordered to look for cardiac abnormalities. She is otherwise stable aortic dissection/aortic aneurysm seem unlikely. Lab work returned showing no concerning abnormalities. Initial troponin within normal limits. Will repeat troponin as symptoms of chest pressure started about 2 hours prior to arrival. EKG shows no concerning abnormalities. Chest x-ray reviewed by myself the radiologist shows no concerning findings. D-dimer within normal limits. Patient is COVID positive. Repeat troponin within normal limits. She is feeling well at this time will be discharged. Will treat her for both an allergic reaction and perichondritis. Lab Data Labs: Lab Results 09/24/24 09/24/24 09/24/24 Range/Units 21:05 21:15 23:05 WBC 8.34 (4.50-11.00) K/uL RBC 4.53 (4.00-5.20) m/uL Hgb 14.0 (12.0-16.0) gm/dL Hct 41.7 (33.0-51.0) % MCV 92 (80-100) fL MCH 31 (26-34) pg MCHC 34 (32-36) gm/dL RDW Coeff of Lady 11.9 (11.5-15.5) % Plt Count 369 (140-440) K/uL Neut % (Auto) 61.9 (42.0-72.0) % Lymph % (Auto) 29.4 (20-44) % [place] % (Auto) 6.4 (0.0-11.0) % Eos % (Auto) 1.9 (0.0-7.0) % Baso % (Auto) 0.4 (0.0-3.0) % Neut # (Auto) 5.17 (1.7-7.0) K/uL Lymph # (Auto) 2.45 (0.90-2.90) K/uL [place] # (Auto) 0.50 (0.00-0.90) K/UL Eos # (Auto) 0.16 (0.00-0.50) K/uL Baso # (Auto) 0.03 (0.00-0.30) K/uL Abs Immat Gran (auto) 0.00 (0.00-0.30) K/uL Imm/Tot Granulo (auto) 0.0 % D-Dimer Quant (PE/DVT) < 0.27 (0.00-0.50) ug/ml Sodium 141 (135-149) mmol/L Potassium 3.7 (3.6-5.1) mmol/L Chloride 107 (96-114) mmol/L Carbon Dioxide 28 (20-32) mmol/L Anion Gap 6 L (7-15) mEq/L BUN 14 (7-30) mg/dL Creatinine 0.7 (0.5-1.5) mg/dL Estimated Creat Clear 93.76 Estimated GFR 103 ml/min Glucose 88 (60-115) mg/dL Calcium 9.3 (8.4-10.6) mg/dL Magnesium 2.1 (1.5-2.6) mg/dL SARS-CoV-2 (PCR) POSITIVE SARS-CoV-2 A (Negative) Influenza Type A (PCR) Negative PCR FLU A (Negative) Influenza Type B (PCR) Negative PCR FLU B (Negative) RSV (PCR) Negative PCR RSV (Negative) POC Troponin I 0.00 L 0.00 L (0.01-0.04) ng/ml Imaging Data Chest x-ray: Attestation: I have reviewed the pertinent imaging results. Radiologist's impression: No acute cardiopulmonary abnormality. Dictated by Cortes Monteiro MD @ 09/24/2024 9:22:23 PM ECG Data Attestation: I personally reviewed and interpreted this ECG as follows: Prior ECG tracings: not available for review Interpretation: Sinus bradycardia with a rate of 59 beats per minute, normal intervals, normal axis, no ST or T-wave abnormalities Discharge Plan Discharge Clinical Impression: COVID Bug bite of face with infection Qualifiers: Encounter type: initial encounter Qualified Code(s): S00.86XA - Insect bite (nonvenomous) of other part of head, initial encounter Patient Disposition: Home, Self-Care Condition: Stable Instructions: Insect Bite or Sting (ED), COVID-19 (Coronavirus Disease 2019) (ED) Additional Instructions: You have COVID. Recommendations is to quarantine for 5 days of onset of symptoms and 72 hours without a fever. Is hard to say if here here is allergic reaction or infection so the cell treated for both. Take Benadryl as needed for itchiness. Can also take Pepcid once a day. 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 Start taking medications on 09/25/2024 when you wake up Prescriptions: No Action estradiol 0.01 % (0.1 mg/gram) cream 0.5 vaginal .Twice Weekly estradiol [Estrace] 0.01 % (0.1 mg/gram) cream 0.5 g vaginal 2XW Qty: 42.5 3RF Rx Instructions: Use nightly for 2 weeks, then twice weekly. May apply with finger. cyanocobalamin (vitamin B-12) 1,000 mcg/mL solution 1,000 mcg subcut Q4W vit d3/k2 adrenal support plus dopa factors clobetasol 0.05 % ointment 1 applic topical .COMPLEX Qty: 15 1RF Rx Instructions: 1 applic topically 3 times a week Follow Up/Referrals: Kamla Perry, [facility] [Primary Care Provider, Family Practice] Stand Alone Forms: [facility] Info Instructions
[2024-09-24] MEDS: CIPROFLOXACIN 500 MG TABLET PO (21:21)
[2024-09-24] MEDS: FAMOTIDINE 20 MG TABLET PO (21:22)
[2024-09-24 21:37] LABS: Hematocrit 41.7 % (33.0-51.0); Hemoglobin* 14.0 gm/dL (12.0-16.0); Immature Granulocytes Abs Auto 0.00 K/uL (0.00-0.30); Immature Granulocytes Pct Auto 0.0 %; Lymphocytes Absolute Auto 2.45 K/uL (0.90-2.90); Mean Corpuscular HGB Conc 34 gm/dL (32-36); Mean Corpuscular Hemoglobin 31 pg (26-34); Mean Corpuscular Volume 92 fL (80-100); RDW Coefficient of Variation % 11.9 % (11.5-15.5); Red Blood Count 4.53 m/uL (4.00-5.20); White Blood Count* 8.34 K/uL (4.50-11.00)
[2024-09-24 21:39] LABS: Slide Review Reflex No
[2024-09-24 21:55] LABS: Troponin, Point-of-Care* 0.00 ng/ml (0.01-0.04)
[2024-09-24 21:56] LABS: D Dimer Quantitative* < 0.27 ug/ml (0.00-0.50)
[2024-09-24 21:57] LABS: Chloride* 107 mmol/L (96-114); Potassium* 3.7 mmol/L (3.6-5.1); Sodium* 141 mmol/L (135-149)
[2024-09-24 22:00] LABS: Anion Gap 6 mEq/L (7-15); Blood Urea Nitrogen* 14 mg/dL (7-30); Calcium* 9.3 mg/dL (8.4-10.6); Carbon Dioxide* 28 mmol/L (20-32); Creatinine* 0.7 mg/dL (0.5-1.5); Est. Creatinine Clearance* 93.76; Estimated Glomerular Filt Rate 103 ml/min; Glucose* 88 mg/dL (60-115)
[2024-09-24 22:13] LABS: PCR FLU A Negative PCR FLU A (Negative); PCR FLU B Negative PCR FLU B (Negative); PCR RSV Negative PCR RSV (Negative); SARS PCR* POSITIVE SARS-CoV-2 (Negative)
[2024-09-24 23:22] LABS: Troponin, Point-of-Care* 0.00 ng/ml (0.01-0.04)
== END 2024-09-24 23:41 | disposition home or self-care (01) ==
PROVIDERS: Emergency Provider Student in an Organized Health Care Education/Training Program; PCP Physician Assistant Medical
DX: U07.1 COVID-19 (principal); S00.461A Insect bite (nonvenomous) of right ear, initial encounter; T63.441A Toxic effect of venom of bees, accidental (unintentional), initial encounter
CPT/HCPCS: 36415; 71046; 80048; 83735; 84484; 85025; 85379; 87631; 96374; 99284; A9270; J1200; J7512